=== PATIENT | female | born 1945 | race Caucasian/White ===

== ENCOUNTER → 2019-02-13 | Outpatient (CLI) | payer MEDICARE | LOC: LB.CLINIC 08:06 | PROVIDERS: ATTEND Nurse Practitioner Family | DX: I10 Essential (primary) hypertension (principal); E78.5 Hyperlipidemia, unspecified | CPT/HCPCS: 36415; 80053; 80061; 85025 ==

== ENCOUNTER → 2019-02-20 | Outpatient (CLI) | payer BC, MEDICARE ==
--- NOTE | 2019-02-22 16:00 | CRLMY ---
DATE OF SERVICE: 02/20/19 CLINICAL DATA: Encounter for screening mammogram for malignant neoplasm of breast BILATERAL MAMMOGRAMS: Comparison is made to a prior bilateral mammograms dated 02/10/18 and a left breast mammogram dated 02/20/18. There are scattered fibroglandular densities bilaterally. There is stable asymmetry. No significant interval changes bilaterally from most recent prior exams. No evidence of malignancy. IMPRESSION: No evidence of malignancy. One year follow-up mammography is recommended. BI-RAD B: Mammogram - There are scattered areas of fibroglandular density. ACR 1 - Negative Mammogram. The exam was reviewed with R2 CAD. [id number] MTDD
== END ==
LOC: LB.MAM 09:53
PROVIDERS: ATTEND Nurse Practitioner Family
DX: Z12.31 Encounter for screening mammogram for malignant neoplasm of breast (principal)
CPT/HCPCS: 77067